=== PATIENT | male | born 1945 | race Caucasian/White ===

== ENCOUNTER 2024-02-07 11:52 | Emergency (ER) | payer OTHER, SELFPAY ==
--- NOTE | ~2024-02-07 | XR_ITS ---
EXAMINATION: XR HUMERUS, LEFT CLINICAL INFORMATION: Pain in left arm COMPARISON: None available. TECHNIQUE: AP and lateral views of the left humerus. FINDINGS: No fracture or dislocation. The glenohumeral joint and elbow joints appear grossly intact. XR/XR humerus LT IMPRESSION: No acute abnormality in the left humerus.
--- NOTE | ~2024-02-07 | CT_ITS ---
EXAMINATION: CT HEAD WITHOUT CONTRAST EXAMINATION: NONCONTRAST HEAD CT INDICATION INFORMATION: Left arm weakness, tremor on eloquence COMPARISON: 02/02/2016 TECHNIQUE: Noncontrast CT examinations of the head was performed. Coronal and sagittal images were created for each examination at the technologist workstation. This CT examination was performed using dose optimization techniques as appropriate, variously including the following: *Automated exposure control *Adjustment of mA and/or kV according to patient size (this includes techniques or standardized protocols for targeted exams where dose is matched to indication/reason for exam; i.e. extremities or head) *Use of iterative reconstruction technique DLP: 669 mGy-cm FINDINGS: Head: There is no evidence of acute intracranial hemorrhage or territorial infarction. No abnormal mass effect or midline shift is seen. [place] to white matter differentiation is well preserved. No extra-axial fluid collections are identified. No hydrocephalus. No significant volume loss. There is no abnormal attenuation within the brain parenchyma. No acute osseous or soft tissue abnormality. The mastoid air cells and visualized portions of the paranasal sinuses are well aerated. CT/CT head/brain wo IV con IMPRESSION: No acute intracranial pathology.
[2024-02-07 11:56] VITALS: BP 135/76; PULSE 82; O2SAT 98
[2024-02-07 12:00] VITALS: BP 174/71; PULSE 75; RESP 16; TEMP 36.7; O2SAT 98; BMI 28.9
--- NOTE | 2024-02-07 12:09 | PC.NURSE ---
Patient able to raise 1L bottle of water with ease with R hand/arm. Able to last picker and raise 1L w/ L hand/arm with mild shakiness noted.
--- NOTE | 2024-02-07 12:24 | ECG_ITS ---
Test Reason : left arm pain Blood Pressure : / mmHG Vent. Rate : 067 BPM Atrial Rate : 067 BPM P-R Int : 120 ms QRS Dur : 126 ms QT Int : 412 ms P-R-T Axes : 046 -24 041 degrees QTc Int : 435 ms Normal sinus rhythm Right bundle branch block Abnormal ECG When compared with ECG of 21-JAN-2017 17:28, Right bundle branch block is now Present Referred By: Marisela Palomino Electronically Signed By:GEORGE YANEZ
--- NOTE | 2024-02-07 13:05 | ED_ITS ---
HPI - Extremity Problem General Chief complaint: Extremity Injury, Upper Stated complaint: PT STS MINI STROKE/L ARM PAIN/SHAKEY NO INJURY Time Seen by Provider: 02/07/24 11:53 Source: patient, EMS and old records reviewed Mode of arrival: EMS Limitations: no limitations History of Present Illness ED Provider: ALEXANDR HPI Narrative: 78 yo male with PMH of COPD 3L NC, gout, afib on eliquis, BPH, HTN, HLD, arthritis of L shoulder which kept him up all night then around 8am when he woke up he started to note that he had sig pain in L humerus area without trauma. His left hand feels shaky worse when he tries to move it. Pain does not radiate. He has no numbness or weakness. He feels like he cannot hold things in the hand. He was worried he had a stroke. MD Complaint: extremity pain Onset (ago): hour(s) (worsening overnight peak 8am) Pain Consistency: constant Location: left and upper extremity Quality: aching Radiation: none Relieving factors: nothing Exacerbating factors: range of motion and palpation Associated symptoms: other (feels left hand is shaky) Related Data Allergies Allergy/AdvReac Type Severity Reaction Status Date / Time Chocolate Allergy Shortness Verified 02/07/24 12:03 of Breath Review of Systems 2 Review of Systems: Constitutional : No Fever, No Chills ENT/Mouth : No Ear Pain, No Hoarseness, No sore throat Eyes: No Eye Pain, No Swelling, No Redness, No Foreign Body Cardiovascular : No Chest Pain, No SOB Respiratory : No Cough, No Dyspnea Gastrointestinal : No Nausea, No Vomiting, No Diarrhea, No abdominal Pain Genitourinary : No Dysuria, No Hematuria Musculoskeletal : positive joint pain, pos Myalgias, No Joint Swelling Skin : No Skin lacerations, No rash Neuro : No Weakness, No Numbness, No Loss of Consciousness, No Dizziness, No Headache, pos tremor of L hand Psych : No Anxiety/Panic, No Depression All other systems reviewed and are negative FOR[facility]LY [facility] Past Medical History Attestation statement: The following information was validated with the patient. Source: old records reviewed Medical History Gout HLD (hyperlipidemia) COPD (chronic obstructive pulmonary disease) HTN (hypertension) Afib Social History Social History (Updated 02/07/24 @ 13:12 by Marisela Palomino DO) Patient Tobacco Use Status: Tobacco use Unknown Smoked in Last 30 Days: No Use of substances other than those prescribed or required for medical reasons: No Advance Directives: No Advance Directives Information Provided: No Do you have a plan to hurt others: No Plan Physical Exam 2 Vital Signs: Vital Signs: Last Vital Signs Temp 98.2 F 02/07/24 15:15 Pulse 67 02/07/24 15:15 Resp 17 02/07/24 15:15 BP 187/90 H 02/07/24 15:15 Pulse Ox 99 02/07/24 15:15 O2 Del Method Room Air 02/07/24 15:15 Oxygen Flow Rate 3 02/07/24 12:00 BMI result Body Mass Index 28.9 Appearance: Alert. Oriented X3. No acute distress. Eyes: Pupils equal, round and reactive to light. ENT: Pharynx normal. Neck: Normal inspection. Neck supple. CVS: Normal heart rate and rhythm. Pulses normal. Respiratory: No respiratory distress. Breath sounds mildly diminished Abdomen: Soft and nontender. Skin: Skin warm and dry. Normal skin color. Normal skin turgor. Extremities: No lower extremity edema. L arm has mild tremor and feels weird holding a water bottle it does appear he has a hard time but then good him analyst 5/5 SILT intact 2+ radial pulse BCR In all digits, pain localized just to humerus no erythema or warmth tremor worse when he tries to raise arm has no neck pain Neuro: Oriented X 3. No motor deficit. No sensory deficit. Course Course Course Narrative: hemoglobin baseline 10 Cr baseline 1.9 from [facility] Medical Decision Making Medical Decision Making MDM Narrative: 78 yo male with PMH of COPD 3L NC, gout, afib on eliquis, BPH, HTN, HLD, arthritis of L shoulder here with L humerus pain and feels a tremor in L hand he is [place] Intact him analyst intact 5/5 , 2+ radial pulse, SILT intact - does appear to struggle to hold a water bottle due to tremor. At this time will need basic labs, CT head for any localized sign or compressive lesion. Denies neck pain or pain with ROM of neck. Xray of humerus for any occult injury - tick panel, lytes. EKG. Denies need for pain medications. Isolated tremor worse with movement and strength testing seems atypical for seizures. Differential Diagnosis Differential Diagnoses: The differential diagnosis associated with the presentation includes tremor, arm pain, lyte abnormality, arthralgia Admission/Observation Consideration of admission/observation: Escalation of care including admission/observation considered I spoke to the patient about MRI to confirm possible stroke but he has tons of appointments this week and does not want to stay he is going to call his PCP for MRI he is on eliquis so he is maxed out on his therapy for blood thinners at this time Lab Data MDM Lab Attestation statement: I reviewed the patient's lab results. 02/07/24 13:28 02/07/24 13:28 Labs: Lab Results 02/07/24 02/07/24 02/07/24 Range/Units 13:28 13:53 15:34 WBC 8.1 (4.8-10.8) X10*3/uL RBC 2.99 L (4.60-5.80) X10*6/uL Hgb 9.8 L (14.0-18.0) g/dl Hct 29.4 L (42.0-52.0) % MCV 98.3 H (80.0-98.0) fL MCH 32.8 (27.0-33.0) pg MCHC 33.3 (31.0-36.0) g/dl RDW 16.1 H (11.0-16.0) % Plt Count 149 L (160-400) X10*3/uL MPV 10.6 (9.4-12.4) fL Immature Gran % (Auto) Cancelled Neut % (Auto) Cancelled Lymph % (Auto) Cancelled [place] % (Auto) Cancelled Eos % (Auto) Cancelled Baso % (Auto) Cancelled Lymph # (Auto) Cancelled [place] # (Auto) Cancelled Eos # (Auto) Cancelled Baso # (Auto) Cancelled Abs Immat Gran (auto) Cancelled Absolute Neuts (auto) Cancelled Absolute Nucleated RBC 0.000 (0.0-0.012) X10*3/uL Nucleated RBC % (auto) 0.0 (0.0-0.2) /100WBC Neutrophils % (Manual) 87 H (45-73) % Band Neutrophils % 3 (3-5) % Lymphocytes % (Manual) 3 L (20-40) % Monocytes % (Manual) 4 (2-11) % Metamyelocytes % 3 % Abs Neuts (Manual) 7.3 (2.0-8.3) X10*3/uL Lymphocytes # (Manual) 0.2 L (1.2-4.9) X10*3/uL Monocytes # (Manual) 0.3 (0.1-1.2) X10*3/uL Metamyelocytes # 0.2 X10*3/uL Platelet Estimate NORMAL (NORMAL) Plt Morphology Comment NORMAL RBC Morphology NOTED Tear Drop Cells 1+ (0-2) /OIF Ovalocytes 1+ (5-14) /OIF VBG pH 7.46 H (7.32-7.43) VBG pCO2 52 mmHg VBG pO2 35 mmHg VBG HCO3 38 H (22-26) mmol/L VBG O2 Saturation 55.0 % VBG Base Excess 13.0 mmol/L Sodium 141 (135-145) mmol/L Potassium 4.2 (3.3-5.1) mmol/L Chloride 100 (96-108) mmol/L Carbon Dioxide 32 H (22-29) mmol/L Anion Gap 13 (12-20) BUN 46 H (9-16) mg/dL Creatinine 1.65 H (0.5-1.4) mg/dL Estim Creat Clear Calc 39.4 Estimated GFR 41 Random Glucose 111 (60-115) mg/dL Calcium 9.2 (8.4-10.2) mg/dL Magnesium 2.3 (1.6-2.6) mg/dL Total Bilirubin 0.5 (0.0-1.0) mg/dL Direct Bilirubin 0.2 (0.0-0.5) mg/dL AST 30 (5-37) U/L ALT 38 (0-40) U/L Alkaline Phosphatase 40 (39-117) U/L Ammonia 22 (13-55) umol/L Troponin I High Sens 38.1 H 38.4 H (<3.5-35.0) ng/L Total Protein 5.6 L (6.5-8.0) g/dL Albumin 3.6 (3.5-5.0) g/dL Lipase 17 (8-78) U/L TSH 0.93 (0.32-4.0) uIU/mL Independent Interpretation I performed an independent interpretation of an: EKG, Plain X-Ray and CT Scan Interpretation: Rate: 67 Rhythm: NSR [place]: left Normal P waves. Normal ZEESHAN. RBBB ST T wave : no KINZA, nonspecific ST T wave change III qTC: 435 prior studies: old EKG 2017 RBBB is new The study has been interpreted contemporaneously by me. . Radiology Impression Discussion of test interpretation with radiology: I have reviewed the radiologist's reading. External Record Review External record reviewed: Outpatient record and Prior outpatient labs Discharge Plan Discharge Clinical Impression: Tremor Arm pain Qualifiers: Laterality: left Qualified Code(s): M79.602 - Pain in left arm Patient Disposition: Home, Self-Care Instructions: Arm Pain (ED), Tremors (ED) Additional Instructions: hemoglobin at baseline kidney function at baseline xray of arm negative CT head negative you need to continue your eliquis and other medications return for any worsening symptoms or concerns you can come back at any time you were offered admission for MRI Print Language: Danish
[2024-02-07 13:39] LABS: Hematocrit 29.4 % (42.0-52.0); Hemoglobin 9.8 g/dl (14.0-18.0); Mean Corpuscular HGB Conc 33.3 g/dl (31.0-36.0); Mean Corpuscular Hemoglobin 32.8 pg (27.0-33.0); Mean Corpuscular Volume 98.3 fL (80.0-98.0); Mean Platelet Volume 10.6 fL (9.4-12.4); Platelet Count 149 X10*3/uL (160-400); Red Blood Count 2.99 X10*6/uL (4.60-5.80); Red Cell Distribution Width 16.1 % (11.0-16.0); White Blood Count 8.1 X10*3/uL (4.8-10.8)
[2024-02-07 13:47] LABS: Ammonia 22 umol/L (13-55)
[2024-02-07 13:54] LABS: Alanine Aminotransferase 38 U/L (0-40); Albumin Level 3.6 g/dL (3.5-5.0); Alkaline Phosphatase 40 U/L (39-117); Anion Gap 13 (12-20); Aspartate Amino Transferase 30 U/L (5-37); Bilirubin Direct 0.2 mg/dL (0.0-0.5); Bilirubin Total 0.5 mg/dL (0.0-1.0); Blood Urea Nitrogen 46 mg/dL (9-16); Calcium 9.2 mg/dL (8.4-10.2); Carbon Dioxide 32 mmol/L (22-29); Chloride 100 mmol/L (96-108); Creatinine Clr Calc Pharmacy 39.4; Estimated Glomerular Filt Rate 41; Glucose Random 111 mg/dL (60-115); Lipase 17 U/L (8-78); Magnesium 2.3 mg/dL (1.6-2.6); Potassium 4.2 mmol/L (3.3-5.1); Sodium 141 mmol/L (135-145); Total Protein 5.6 g/dL (6.5-8.0)
[2024-02-07 13:56] LABS: Troponin-I High Sensitivity 38.1 ng/L (<3.5-35.0)
[2024-02-07 13:59] LABS: Venous Blood Gas Refer to POC result
[2024-02-07 14:03] LABS: VBG HCO3 38 mmol/L (22-26); VBG pCO2 52 mmHg; VBG pH 7.46 (7.32-7.43); VBG pO2 35 mmHg
[2024-02-07 14:06] LABS: Band Neutrophils Percent 3 % (3-5); Lymphocytes Absolute Manual 0.2 X10*3/uL (1.2-4.9); Lymphocytes Percent Manual 3 % (20-40); Metamyelocytes Absolute 0.2 X10*3/uL; Metamyelocytes Percent 3 %; Monocytes Absolute Manual 0.3 X10*3/uL (0.1-1.2); Monocytes Percent Manual 4 % (2-11); Neutrophils Absolute Manual 7.3 X10*3/uL (2.0-8.3); Neutrophils Percent Manual 87 % (45-73)
[2024-02-07 14:08] LABS: Ovalocytes 1+ (5-14) /OIF; Platelet Estimate NORMAL (NORMAL); Platelet Morphology Comment NORMAL; RBC Morphology NOTED; Tear Drop Cells 1+ (0-2) /OIF
[2024-02-07 14:10] LABS: TSH reflex Free T4 0.93 uIU/mL (0.32-4.0)
[2024-02-07 14:41] VITALS: BP 170/78; PULSE 67; RESP 14; TEMP 36.6; O2SAT 99
[2024-02-07 15:15] VITALS: BP 187/90; PULSE 67; RESP 17; TEMP 36.8; O2SAT 99
[2024-02-07 16:08] LABS: Troponin-I High Sensitivity 38.4 ng/L (<3.5-35.0)
[2024-02-07] MEDS: predniSONE 10 MG TABLET PO (16:23)
[2024-02-07 16:48] VITALS: BP 180/84; PULSE 68; RESP 17; TEMP 36.6; O2SAT 99
[2024-02-07 17:20] VITALS: BP 180/84; PULSE 68; RESP 17; TEMP 36.6; O2SAT 99
[2024-02-08 17:08] LABS: Lyme Abs Screen <0.90 index
[2024-02-08 21:47] LABS: A. Phagocytphilium DNA,RT-PCR NOT DETECTED (NOT DETECTED); Babesia Microti DNA, RT-PCR NOT DETECTED (NOT DETECTED); Borrelia Miyamotoi,DNA RT-PCR NOT DETECTED (NOT DETECTED); E.Chaffeensis DNA RT-PCR NOT DETECTED (NOT DETECTED); Lyme(Borrelia ssp)DNA RT-PCR NOT DETECTED (NOT DETECTED)
== END 2024-02-07 17:21 | disposition home or self-care (01) ==
PROVIDERS: Emergency Provider Emergency Medicine; PCP Internal Medicine
DX: R25.1 Tremor, unspecified (principal); M79.602 Pain in left arm; R51.9 Headache, unspecified; R94.31 Abnormal electrocardiogram [ECG] [EKG]; I45.10 Unspecified right bundle-branch block; I48.91 Unspecified atrial fibrillation; I10 Essential (primary) hypertension; Z79.01 Long term (current) use of anticoagulants; Z79.899 Other long term (current) drug therapy
CPT/HCPCS: 36415; 70450; 73060; 80048; 80076; 82140; 82803; 83690; 83735; 84443; 84484; 85007; 85027; 86617; 86618; 87468; 87469; 87478; 87484; 87798; 93005; 99284

== ENCOUNTER → 2024-02-07 12:24 | Outpatient (BNV) | payer OTHER, SELFPAY | PROVIDERS: Emergency Provider Emergency Medicine; PCP Internal Medicine; Visit Provider Internal Medicine | DX: I45.10 Unspecified right bundle-branch block (principal); R94.31 Abnormal electrocardiogram [ECG] [EKG] | CPT/HCPCS: 93010 ==